=== PATIENT | male | born 1985 | race Native Hawaiian/Other Pacific Islander ===

== ENCOUNTER → 2016-08-19 | Outpatient (CLI) | payer OTHER ==
--- NOTE | 2016-08-19 10:18 | REP ---
CERVICAL SPINE, SEVEN VIEWS: HISTORY: Spondylosis. The cervical spine is visualized from C1 to the C6-7 level in the lateral radiographs. There is no acute fracture or subluxation. The intervertebral discs are normal in height. The neural foramina are patent. IMPRESSION: There is no acute fracture or subluxation. Signed by Ramos Toth MD 08/19/2016 10:20 A
--- NOTE | 2016-08-19 10:46 | REP ---
LUMBAR SPINE SEVEN VIEWS: HISTORY: Spondylosis. There is no acute fracture or subluxation. The L4-5 intervertebral disc is decreased in height consistent with disc degeneration. The facet joints are normal in appearance. There is an old compression fracture of the T12 vertebral body with minimal height loss. There is slight loss of the normal lordotic curve. IMPRESSION: Degenerative change as described above. Signed by Ramos Toth MD 08/19/2016 10:56 A
== END ==
LOC: M LAB 09:27
PROVIDERS: ATTEND Neurological Surgery
DX: M47.892 Other spondylosis, cervical region (principal); E66.9 Obesity, unspecified; M47.896 Other spondylosis, lumbar region